=== PATIENT | male | born 1955 | race Caucasian/White ===

== ENCOUNTER 2019-10-22 23:26 | Emergency (ER) | payer OTHER, MEDICARE ==
--- NOTE | 2019-10-23 00:01 | EDM.PDOC ---
ED HPI GENERAL MEDICAL PROBLEM - General Chief Complaint: Diabetic Complaint Stated Complaint: MEDICAL Time Seen by Provider: 10/23/19 00:01 Source of Information: Reports: Patient History Limitations: Reports: No Limitations - History of Present Illness INITIAL COMMENTS - FREE TEXT/NARRATIVE: pt had some routine lab work done [facility] which showed a bs over 500. He is here to follow up on that. He has been very thirsty and he has been more fatiqued. Duration: Day(s): Location: Reports: Generalized Associated Symptoms: Reports: Weakness - Related Data Allergies Allergy/AdvReac Type Severity Reaction Status Date / Time No Known Allergies Allergy Verified 10/22/19 23:53 Home Meds: Home Meds Amitriptyline [Elavil] 50 mg PO BEDTIME 10/23/19 [History] Aspirin [Srikanth Chewable Aspirin] 81 mg PO BID 10/23/19 [History] Losartan [Cozaar] 50 mg PO DAILY 10/23/19 [History] Metoprolol Succinate 50 mg PO BID 10/23/19 [History] NIFEdipine [Nifedipine ER] 60 mg PO DAILY 10/23/19 [History] Pravastatin [Pravachol] 40 mg PO BEDTIME 10/23/19 [History] hydrALAZINE HCl [Hydralazine HCl] 25 mg PO TID 10/23/19 [History] Past Medical History HEENT History: Reports: Cataract, Impaired Vision Cardiovascular History: Reports: Aneurysm, Hypertension, Other (See Below) Other Cardiovascular History: AAA Respiratory History: Reports: Sleep Apnea, Other (See Below) Other Respiratory History: uses cpap Genitourinary History: Reports: Other (See Below) Other Genitourinary History: 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 Musculoskeletal History: Reports: Fracture, Fibromyalgia, Other (See Below) Other Musculoskeletal History: neuropathy Neurological History: Reports: Migraines, Other (See Below) Other Neuro History: "3 crushed vertebrae" - Past Surgical History HEENT Surgical History: Reports: Tonsillectomy Male Surgical History: Reports: Nephrectomy Musculoskeletal Surgical History: Reports: Arthroscopic Knee Social & Family History - Tobacco Use Smoking Status *Q: Never Smoker - Caffeine Use Caffeine Use: Reports: Coffee - Recreational Drug Use Recreational Drug Use: No ED ROS GENERAL - Review of Systems Review Of Systems: See Below Constitutional: Reports: Weakness HEENT: Reports: No Symptoms Respiratory: Reports: No Symptoms Cardiovascular: Reports: No Symptoms Endocrine: Reports: High Glucose GI/Abdominal: Reports: No Symptoms, Other (increased thirst. ) : Reports: Frequency Musculoskeletal: Reports: No Symptoms Skin: Reports: No Symptoms ED EXAM GENERAL NO PERIP PULSE - Physical Exam Exam: See Below Text/Narrative:: pt arrived with a histoy of increased fatique and increased thirst and urinary frequency. He had labs drawn at [facility] and was found to have a Bs greater than 500. He was called and that is why he is here tonight. Exam Limited By: No Limitations General Appearance: Alert, No Apparent Distress, Anxious Ears: Normal TMs Nose: Normal Inspection Throat/Mouth: Normal Inspection Head: Atraumatic Neck: Normal Inspection Respiratory/Chest: No Respiratory Distress Cardiovascular: Regular Rate, Rhythm GI/Abdominal: Soft, Non-Tender (Male) Exam: Deferred Rectal (Males) Exam: Deferred Back Exam: Normal Inspection Extremities: Normal Inspection Course - Vital Signs Last Recorded V/S: Last Vital Signs Temp 35.5 C L 10/22/19 23:52 Pulse 75 10/23/19 02:25 Resp 16 10/23/19 02:25 BP 155/102 H 10/23/19 02:25 Pulse Ox 96 10/23/19 02:25 - Orders/Labs/Meds Orders: Active Orders 24 hr Category Date Time Status Insulin Regular, Human [HumuLIN R] Med 10/23/19 04:27 Once 3 unit SUBCUT ONETIME ONE Sodium Chloride 0.9% [Saline Flush] Med 10/23/19 00:49 Active 10 ml FLUSH ASDIRECTED PRN Saline Lock Insert [OM.PC] Routine Oth 10/23/19 00:49 Ordered Medication Orders Sodium Chloride (Saline Flush) 10 ml FLUSH ASDIRECTED PRN PRN Reason: Keep Vein Open Last Admin: 10/23/19 01:02 Dose: 10 ml Documented by: CORTES Labs: Laboratory Tests 10/22/19 10/22/19 10/22/19 Range/Units 23:45 23:45 23:45 WBC 4.4 L (4.5-11.0) K/uL RBC 4.65 (4.30-5.90) M/uL Hgb 14.9 (12.0-15.0) g/dL Hct 43.2 (40.0-54.0) % MCV 93 (80-98) fL MCH 32 H (27-31) pg MCHC 35 (32-36) % Plt Count 152 (150-400) K/uL Neut % (Auto) 50 (36-66) % Lymph % (Auto) 35 (24-44) % Brooke % (Auto) 11 H (2-6) % Eos % (Auto) 3 (2-4) % Baso % (Auto) 1 (0-1) % Puncture Site ABG pH (7.350-7.450) ABG pCO2 (35.0-42.0) mmHg ABG pO2 (75.0-100.0) mmHg ABG HCO3 (22.0-26.0) mmol/L ABG Total CO2 (23.0-27.0) mmol/L ABG O2 Saturation (95.0-98.0) % ABG O2 Content (15.0-23.0) %vol ABG Base Excess mm/L ABG Hemoglobin (13.5-18.0) g/dL ABG Oxyhemoglobin % ABG Carboxyhemoglobin (0.0-1.6) % ABG Methemoglobin % VBG pH 7.402 (7.350-7.450) O2 Delivery Device Sodium 133 L (140-148) mmol/L Potassium 4.2 (3.6-5.2) mmol/L Chloride 95 L (100-108) mmol/L Carbon Dioxide > 45 H (21-32) mmol/L Anion Gap -2.8 L (5.0-14.0) mmol/L BUN 21 H (7-18) mg/dL Creatinine 2.0 H (0.8-1.3) mg/dL Est Cr Clr Drug Dosing 36.33 mL/min Estimated GFR (MDRD) 34 L (>60) Glucose 698 H* (74-106) mg/dL POC Glucose (74-106) MG/DL Lactic Acid (0.4-2.0) mmol/L Calcium 8.3 L (8.5-10.1) mg/dL Total Bilirubin 0.6 (0.2-1.0) mg/dL AST (15-37) U/L ALT 28 (12-78) U/L Alkaline Phosphatase 68 (46-116) U/L Total Protein 6.1 L (6.4-8.2) g/dL Albumin 3.6 (3.4-5.0) g/dL Globulin 2.5 (2.3-3.5) g/dL Albumin/Globulin Ratio 1.4 (1.2-2.2) Urine Color (YELLOW) Urine Appearance (CLEAR) Urine pH (5.0-8.0) Ur Specific Grover (1.008-1.030) Urine Protein (NEGATIVE) mg/dL Urine Glucose (UA) (NEGATIVE) mg/dL Urine Ketones (NEGATIVE) mg/dL Urine Occult Blood (NEGATIVE) Urine Nitrite (NEGATIVE) Urine Bilirubin (NEGATIVE) Urine Urobilinogen (0.2-1.0) EU/dL Ur Leukocyte Esterase (NEGATIVE) Urine RBC (0-5) Urine WBC (0-5) Ur Epithelial Cells Amorphous Sediment Urine Bacteria Urine Mucus 10/23/19 10/23/19 10/23/19 Range/Units 00:01 00:36 00:50 WBC (4.5-11.0) K/uL RBC (4.30-5.90) M/uL Hgb (12.0-15.0) g/dL Hct (40.0-54.0) % MCV (80-98) fL MCH (27-31) pg MCHC (32-36) % Plt Count (150-400) K/uL Neut % (Auto) (36-66) % Lymph % (Auto) (24-44) % Brooke % (Auto) (2-6) % Eos % (Auto) (2-4) % Baso % (Auto) (0-1) % Puncture Site R brachial ABG pH 7.369 (7.350-7.450) ABG pCO2 42.8 H (35.0-42.0) mmHg ABG pO2 75.9 (75.0-100.0) mmHg ABG HCO3 24.1 (22.0-26.0) mmol/L ABG Total CO2 21.0 L (23.0-27.0) mmol/L ABG O2 Saturation 95.1 (95.0-98.0) % ABG O2 Content 19.9 (15.0-23.0) %vol ABG Base Excess -0.8 mm/L ABG Hemoglobin 15.3 (13.5-18.0) g/dL ABG Oxyhemoglobin 92.5 % ABG Carboxyhemoglobin 1.3 (0.0-1.6) % ABG Methemoglobin 1.4 % VBG pH (7.350-7.450) O2 Delivery Device Room air Sodium (140-148) mmol/L Potassium (3.6-5.2) mmol/L Chloride (100-108) mmol/L Carbon Dioxide (21-32) mmol/L Anion Gap (5.0-14.0) mmol/L BUN (7-18) mg/dL Creatinine (0.8-1.3) mg/dL Est Cr Clr Drug Dosing mL/min Estimated GFR (MDRD) (>60) Glucose (74-106) mg/dL POC Glucose (74-106) MG/DL Lactic Acid 2.0 (0.4-2.0) mmol/L Calcium (8.5-10.1) mg/dL Total Bilirubin (0.2-1.0) mg/dL AST (15-37) U/L ALT (12-78) U/L Alkaline Phosphatase (46-116) U/L Total Protein (6.4-8.2) g/dL Albumin (3.4-5.0) g/dL Globulin (2.3-3.5) g/dL Albumin/Globulin Ratio (1.2-2.2) Urine Color Yellow (YELLOW) Urine Appearance Clear (CLEAR) Urine pH 5.5 (5.0-8.0) Ur Specific Grover 1.010 (1.008-1.030) Urine Protein Negative (NEGATIVE) mg/dL Urine Glucose (UA) 500 H (NEGATIVE) mg/dL Urine Ketones Negative (NEGATIVE) mg/dL Urine Occult Blood Negative (NEGATIVE) Urine Nitrite Negative (NEGATIVE) Urine Bilirubin Negative (NEGATIVE) Urine Urobilinogen 0.2 (0.2-1.0) EU/dL Ur Leukocyte Esterase Negative (NEGATIVE) Urine RBC 0-5 (0-5) Urine WBC 0-5 (0-5) Ur Epithelial Cells Rare Amorphous Sediment Not seen Urine Bacteria Rare Urine Mucus Not seen 10/23/19 10/23/19 10/23/19 Range/Units 01:35 03:00 04:15 WBC (4.5-11.0) K/uL RBC (4.30-5.90) M/uL Hgb (12.0-15.0) g/dL Hct (40.0-54.0) % MCV (80-98) fL MCH (27-31) pg MCHC (32-36) % Plt Count (150-400) K/uL Neut % (Auto) (36-66) % Lymph % (Auto) (24-44) % Brooke % (Auto) (2-6) % Eos % (Auto) (2-4) % Baso % (Auto) (0-1) % Puncture Site ABG pH (7.350-7.450) ABG pCO2 (35.0-42.0) mmHg ABG pO2 (75.0-100.0) mmHg ABG HCO3 (22.0-26.0) mmol/L ABG Total CO2 (23.0-27.0) mmol/L ABG O2 Saturation (95.0-98.0) % ABG O2 Content (15.0-23.0) %vol ABG Base Excess mm/L ABG Hemoglobin (13.5-18.0) g/dL ABG Oxyhemoglobin % ABG Carboxyhemoglobin (0.0-1.6) % ABG Methemoglobin % VBG pH (7.350-7.450) O2 Delivery Device Sodium (140-148) mmol/L Potassium (3.6-5.2) mmol/L Chloride (100-108) mmol/L Carbon Dioxide (21-32) mmol/L Anion Gap (5.0-14.0) mmol/L BUN (7-18) mg/dL Creatinine (0.8-1.3) mg/dL Est Cr Clr Drug Dosing mL/min Estimated GFR (MDRD) (>60) Glucose (74-106) mg/dL POC Glucose > 500 H* > 500 H* 390 H (74-106) MG/DL Lactic Acid (0.4-2.0) mmol/L Calcium (8.5-10.1) mg/dL Total Bilirubin (0.2-1.0) mg/dL AST (15-37) U/L ALT (12-78) U/L Alkaline Phosphatase (46-116) U/L Total Protein (6.4-8.2) g/dL Albumin (3.4-5.0) g/dL Globulin (2.3-3.5) g/dL Albumin/Globulin Ratio (1.2-2.2) Urine Color (YELLOW) Urine Appearance (CLEAR) Urine pH (5.0-8.0) Ur Specific Grover (1.008-1.030) Urine Protein (NEGATIVE) mg/dL Urine Glucose (UA) (NEGATIVE) mg/dL Urine Ketones (NEGATIVE) mg/dL Urine Occult Blood (NEGATIVE) Urine Nitrite (NEGATIVE) Urine Bilirubin (NEGATIVE) Urine Urobilinogen (0.2-1.0) EU/dL Ur Leukocyte Esterase (NEGATIVE) Urine RBC (0-5) Urine WBC (0-5) Ur Epithelial Cells Amorphous Sediment Urine Bacteria Urine Mucus Meds: Medications Generic Name Dose Route Start Last Admin Trade Name Freq PRN Reason Stop Dose Admin Sodium Chloride 10 ml 10/23/19 00:49 10/23/19 01:02 Saline Flush FLUSH 10 ml ASDIRECTED PRN Administration Keep Vein Open Discontinued Medications Generic Name Dose Route Start Last Admin Trade Name Freq PRN Reason Stop Dose Admin Insulin Human Regular 6 unit 10/23/19 00:38 10/23/19 00:57 Humulin R SUBCUT 10/23/19 00:39 6 units ONETIME ONE Administration Insulin Human Regular 3 unit 10/23/19 00:50 10/23/19 00:59 Humulin R IVPUSH 10/23/19 00:51 3 units ONETIME ONE Administration Insulin Human Regular 5 unit 10/23/19 01:47 10/23/19 02:23 Humulin R SUBCUT 10/23/19 01:48 5 units ONETIME ONE Administration Insulin Human Regular 3 unit 10/23/19 03:02 10/23/19 03:09 Humulin R IVPUSH 10/23/19 03:03 3 unit ONETIME ONE Administration Insulin Human Regular 5 unit 10/23/19 03:03 10/23/19 03:07 Humulin R SUBCUT 10/23/19 03:04 5 unit ONETIME ONE Administration Insulin Human Regular 3 unit 10/23/19 04:27 Humulin R SUBCUT 10/23/19 04:28 ONETIME ONE - Re-Assessments/Exams Free Text/Narrative Re-Assessment/Exam: 10/23/19 01:52 pt was given 3 units iv and a total of 13 units subq. [facility] Departure - Departure Time of Disposition: 04:29 Disposition: Home, Self-Care 01 Condition: Fair Clinical Impression: Hyperglycemia - Discharge Information Referrals: PCP,None [Primary Care Provider] - Forms: ED Department Discharge Care Plan Goals: diabetic diet, restricting refined sugars. [facility] with [facility] medication protocol and equipment to check sugars with Sepsis Event Note (ED) - Evaluation Sepsis Screening Result: No Definite Risk - Focused Exam Vital Signs: Vital Signs Temp Pulse Resp BP Pulse Ox 10/23/19 02:25 75 16 155/102 H 96 10/22/19 23:52 35.5 C L 91 16 158/97 H 95 10/22/19 23:35 35.5 C L 91 16 158/97 H 95 - My Orders Last 24 Hours: My Active Orders 10/23/19 00:49 Sodium Chloride 0.9% [Saline Flush] 10 ml FLUSH ASDIRECTED PRN Saline Lock Insert [OM.PC] Routine 10/23/19 04:27 Insulin Regular, Human [HumuLIN R] 3 unit SUBCUT ONETIME ONE - Assessment/Plan Last 24 Hours: My Active Orders 10/23/19 00:49 Sodium Chloride 0.9% [Saline Flush] 10 ml FLUSH ASDIRECTED PRN Saline Lock Insert [OM.PC] Routine 10/23/19 04:27 Insulin Regular, Human [HumuLIN R] 3 unit SUBCUT ONETIME ONE
[2019-10-23] MEDS ORDERED: Insulin Regular, Human 100 Units/ML 3 ML Vial SUBCUT ONE ×4 (00:38→04:27)
[2019-10-23] MEDS ORDERED: Sodium Chloride 0.9% 10 ML Syringe FLUSH PRN (00:49)
[2019-10-23] MEDS ORDERED: Insulin Regular, Human 100 Units/ML 3 ML Vial IVPUSH ONE ×2 (00:50→03:02)
== END 2019-10-23 05:16 | disposition home or self-care (01) ==
LOC: JP.ED 23:26
DX: R73.9 Hyperglycemia, unspecified (principal); I10 Essential (primary) hypertension; G62.9 Polyneuropathy, unspecified; Z79.82 Long term (current) use of aspirin; Z79.899 Other long term (current) drug therapy
CPT/HCPCS: 36415; 36600; 80053; 81001; 82800; 82803; 82962; 83605; 85025; 99284; J1815-GY